=== PATIENT | female | born 1940 | race Caucasian/White ===

== ENCOUNTER 2016-07-06 10:28 | Day surgery (SDC) | payer OTHER ==
[~2016-07-06] VITALS: Ht 175.3 cm; Wt 57.3 kg
[~2016-07-06 10:28] MED LIST: CEPHALEXIN250 MG PO; CLARITIN10 MG PO; ESTERIFIED ESTROGENS PO; FLECAINIDE ACE100 MG PO; FLECAINIDE ACET50 MG PO; KEFLEX750 MG PO; XARELTO10 MG PO
--- NOTE | 2016-07-06 12:48 | Provider's Discharge Care Plan ---
Problem, Goal, Plan Problem List 1. At risk for colon cancer
--- NOTE | 2016-07-06 12:48 | Provider's Discharge Care Plan ---
Problem, Goal, Plan Problem List 1. At risk for colon cancer
--- NOTE | 2016-07-06 13:19 | OPERATIVE REPORT ---
DATE OF SURGERY: 07/06/2016 SURGEON: Jelani Khan MD PREOPERATIVE DIAGNOSIS: 1. Colon cancer risk POSTOPERATIVE DIAGNOSIS: 1. Diverticulosis PROCEDURE PERFORMED: 1. Colonoscopy ANESTHESIA: Total IV general. INDICATIONS: The patient is a 75-year-old woman undergoing screening colonoscopy SURGICAL TECHNIQUE: The patient was taken to the endoscopy suite, where total IV general was administered and the patient was placed in the left lateral decubitus position. A well-lubricated colonoscope was advanced the length colon under direct vision. The patient had diverticulosis in the sigmoid colon. The cecum was reached and the ileocecal valve visualized. On withdrawal, the entire colon was inspected, including a retroflexed view of the rectum. There were no polyps or tumors seen and the patient left in good condition. No intraoperative complications were encountered.
--- NOTE | 2016-07-06 13:19 | OPERATIVE REPORT ---
DATE OF SURGERY: 07/06/2016 SURGEON: Jelani hKan MD PREOPERATIVE DIAGNOSIS: 1. Colon cancer risk POSTOPERATIVE DIAGNOSIS: 1. Diverticulosis PROCEDURE PERFORMED: 1. Colonoscopy ANESTHESIA: Total IV general. INDICATIONS: The patient is a 75-year-old woman undergoing screening colonoscopy SURGICAL TECHNIQUE: The patient was taken to the endoscopy suite, where total IV general was administered and the patient was placed in the left lateral decubitus position. A well-lubricated colonoscope was advanced the length colon under direct vision. The patient had diverticulosis in the sigmoid colon. The cecum was reached and the ileocecal valve visualized. On withdrawal, the entire colon was inspected, including a retroflexed view of the rectum. There were no polyps or tumors seen and the patient left in good condition. No intraoperative complications were encountered.
[2016-07-06 13:58] VITALS: BP 119/64
== END 2016-07-06 14:15 | disposition home or self-care (01) ==
LOC: OR SRH 10:28 → OB SRH 10:28 → OR SRH 12:15
PROVIDERS: Surgery
PROC: 0DJD8ZZ Inspection of Lower Intestinal Tract, Via Natural or Artificial Opening Endoscopic (ICD-10-PCS; principal; 2016-07-06 12:15)
DX: Z12.11 Encounter for screening for malignant neoplasm of colon (principal); K57.30 Diverticulosis of large intestine without perforation or abscess without bleeding; Z79.01 Long term (current) use of anticoagulants; I48.91 Unspecified atrial fibrillation